=== PATIENT | female | born 1995 | race Caucasian/White ===

== ENCOUNTER 2017-05-18 11:39 | Emergency (ER) | payer OTHER ==
[2017-05-18 11:45] VITALS: BP 127/74; PULSE 66; RESP 16; TEMP 98.6; O2SAT 100; BMI 21.7
[2017-05-18] MEDS ORDERED: Lactated Ringer's 1,000 ML IV SCH (12:45)
[2017-05-18 13:14] LABS: BASO % 0.4 % (0.0-2.0); EOS % 0.6 % (0.0-4.0); HEMATOCRIT 36.2 % (34.0-47.0); LYMPH % 13.5 % (20.0-40.0); MEAN CELL VOLUME 82.7 fl (81.0-99.0); MEAN CORPUSCULAR HEMOGLOBIN 26.6 pg (27.0-31.0); MEAN CORPUSCULAR HGB CONC 32.2 g/dL (33.0-37.0); MEAN PLATELET VOLUME 7.8 fl (7.2-11.7); MONO # 0.5 K/uL (0.0-0.8); NEUT # 5.8 K/uL (1.8-7.0); NEUT % 78.5 % (50.0-75.0); RED CELL DISTRIBUTION WIDTH 17.5 % (11.5-14.5); WHITE BLOOD COUNT 7.4 K/uL (4.8-10.8)
--- NOTE | 2017-05-18 13:16 | ED PDOC ---
HPI: General Adult Time Seen by Provider: 05/18/17 11:46 Chief Complaint (Nursing): Abdominal Pain History Per: Patient Additional Complaint(s): Pt. states for the past 3 weeks she's had b/l cramping. Pt. states she on 2016 she also developed N/V/D. On 05/17/2017 she did a HPT which was positive. LMP 04/22/2017. Denies hematuria, dysuria, vaginal bleeding, vaginal discharge, back pain, fever, recent travel, sick contacts. Past Medical History Reviewed: Historical Data, Nursing Documentation, Vital Signs Vital Signs: Last Vital Signs Temp 98.6 F 05/18/17 11:42 Pulse 66 05/18/17 11:42 Resp 16 05/18/17 11:42 BP 127/74 05/18/17 11:42 Pulse Ox 100 05/18/17 15:04 - Family History Family History: States: No Known Family Hx - Immunization History Hx Tetanus Toxoid Vaccination: No Hx Influenza Vaccination: No Hx Pneumococcal Vaccination: No - Home Medications Home Medications: Ambulatory Orders Medication Instructions Recorded No Known Home Med 05/18/17 - Allergies Allergies/Adverse Reactions: Allergies Allergy/AdvReac Type Severity Reaction Status Date / Time No Known Allergies Allergy Verified 05/18/17 11:53 Review of Systems ROS Statement: Except As Marked, All Systems Reviewed And Found Negative Gastrointestinal: Positive for: Nausea, Vomiting, Abdominal Pain, Diarrhea Genitourinary Female: Positive for: Pelvic Pain Physical Exam - Physical Exam Appears: Positive for: Well, Non-toxic, No Acute Distress Skin: Positive for: Normal Color, Warm. Negative for: Rash Eye Exam: Positive for: EOMI, Normal appearance, PERRL ENT: Positive for: Normal ENT Inspection Neck: Positive for: Normal, Painless ROM Cardiovascular/Chest: Positive for: Regular Rate, Rhythm Respiratory: Positive for: CNT, Normal Breath Sounds Gastrointestinal/Abdominal: Positive for: Normal Exam, Soft. Negative for: Tenderness Back: Positive for: Normal Inspection. Negative for: L CVA Tenderness, R CVA Tenderness Extremity: Positive for: Normal ROM Neurologic/Psych: Positive for: Alert, Oriented. Negative for: Aphasia, Facial Droop - Laboratory Results Result Diagrams: 05/18/17 13:11 05/18/17 13:11 - ECG O2 Sat by Pulse Oximetry: 100 - Progress ED Course And Treament: Labs ordered. OB TVUS ordered. OB TVUS: No IUP, benign appearing ovarian cyst approximately 2.3 cm, moderate free fluid in cul-de-sac with potential debris. Case and results d/w Dr. Martinez who states pt. is to return to ED in 3 days for repeat BHCG. Disposition - Clinical Impression Clinical Impression: Miscarriage, Gastroenteritis - Patient ED Disposition Is Patient to be Admitted: No - Disposition Referrals: [facility] [Outside] [facility] [Outside] Disposition: Routine/Home Disposition Time: 15:02 Condition: IMPROVED Additional Instructions: Return to ED in 72 hours for repeat BHCG Instructions: Spontaneous Miscarriage (ED), Gastroenteritis (ED) Forms: [facility] (Welsh) Print Language: HONDURAN
[2017-05-18 13:37] LABS: ALB/GLOB RATIO 1.3 (1.0-2.1); ALKALINE PHOSPHATASE 68 U/L (38-126); ALT/SGPT 31 U/L (9-52); AST/SGOT 21 U/L (14-36); BILIRUBIN,TOTAL 0.3 mg/dl (0.2-1.3); BLOOD UREA NITROGEN 9 mg/dl (7-17); CARBON DIOXIDE 26 mmol/L (22-30); CHLORIDE 104 mmol/L (98-107); GFR AFRICAN-AMERICAN > 60; GLUCOSE,RANDOM 104 mg/dL (65-105); POTASSIUM 3.8 MMOL/L (3.6-5.0); SODIUM 138 mmol/l (132-148); TOTAL PROTEIN 7.6 G/DL (6.3-8.2)
--- NOTE | 2017-05-18 14:44 | US ---
HISTORY: pain LMP 04/22/2017. Menses 04/22/2017 through 05/06/2017- heavy. No menses March. Positive at home test. Negative test reported in ER COMPARISON: None available. TECHNIQUE: Transvaginal FINDINGS: UTERUS: Measures 7.6 x 3.8 x 5.7 cm. Normal in size and retroverted No fibroid or other mass lesion seen. ENDOMETRIUM: Measures 8 mm in diameter. Unremarkable. The endometrial stripe complex does not appear thickened or hyperechogenic CERVIX: No cervical abnormality identified. RIGHT OVARY: Measures 3.7 x 2.3 x 2.3 cm. 10.76 mL volume No solid mass. Normal flow. 2.3 x 1.6 x 2.2 cm simple benign-appearing right ovarian cyst LEFT OVARY: Measures 3.9 x 2.1 x 1.1 cm. 5.06 mL volume. No solid mass. Normal flow. FREE FLUID: Moderate free fluid in the cul-de-sac -some debris within the fluid possible. OTHER FINDINGS: None. IMPRESSION: [id number] endometrium. No intrauterine fluid or gestation appreciated. No intrauterine pathology Benign-appearing right ovarian cyst measuring up to 2.3 cm. Moderate free fluid in the cul-de-sac than with the potential debris here possible. This may relate to recent food with follicular cyst rupture. Negative test reported in ER. Clinical follow-up in this regard recommended. The appearance of the endometrium does not suggest a decidual reaction
== END 2017-05-18 15:26 | disposition home or self-care (01) ==
LOC: H.ER 11:39
DX: O03.9 Complete or unspecified spontaneous abortion without complication (principal); K52.9 Noninfective gastroenteritis and colitis, unspecified; N83.201 Unspecified ovarian cyst, right side
CPT/HCPCS: 76817; 80053; 81025; 84702; 85025; 87086; 96374; 99283; J2765; J7120